=== PATIENT | male | born 1995 | race Caucasian/White ===

== ENCOUNTER 2016-11-20 00:36 | Day surgery (SDC) | payer OTHER ==
[~2016-11-20 00:36] MED LIST: OMEP20TA86 PO
[2016-11-20] MEDS ORDERED: fentaNYL-PF 50 mCg/mL 2 mL Inj IVPUSH PRN (06:00)
[2016-11-20] MEDS ORDERED: Sodium Chloride LOK Flush 10 mL Syringe IV PRN (06:00)
[2016-11-20] MEDS ORDERED: 0.9% Sodium Chloride 1,000 ML IV SCH (06:00)
== END 2016-11-20 23:59 | disposition home or self-care (01) ==
LOC: END 00:36 → EDUNIT# 09:00 → END 23:59
PROVIDERS: ATTEND Internal Medicine
DX: R10.9 Unspecified abdominal pain (principal)